=== PATIENT | male | born 1990 | race American Indian/Alaskan Native ===

== ENCOUNTER 2020-04-04 23:07 | Emergency (ER) | payer OTHER ==
[2020-04-05 00:12] VITALS: BP 125/59
--- NOTE | 2020-04-05 00:54 | XRay Report ---
. XR ribs UNILAT 2V RT INDICATION: right rib pain. COMPARISON: No relevant prior imaging study available. FINDINGS: No acute skeletal abnormality. Lungs are clear. No pleural effusion. No pneumothorax. There is mild scoliosis. IMPRESSION: 1. No acute findings. Signer Name: Amado Conner MD Signed: 04/05/2020 12:49 AM Workstation Name: [id number]
--- NOTE | 2020-04-05 00:55 | XRay Report ---
RIGHT HAND 3 VIEWS INDICATION: right hand pain. COMPARISON: No relevant prior imaging study available. FINDINGS: No acute skeletal abnormality. No soft tissue swelling or foreign bodies. No significant degenerative changes. IMPRESSION: 1. No acute findings. RIGHT FOREARM 2 VIEWS INDICATION: right hand pain. COMPARISON: No relevant prior imaging study available. FINDINGS: No acute skeletal abnormality. No focal soft tissue swelling. IMPRESSION: 1. No acute findings. Signer Name: Amado Conner MD Signed: 04/05/2020 12:51 AM Workstation Name: [id number]
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
== END 2020-04-05 02:45 | disposition home or self-care (01) ==
LOC: ED 23:07
DX: R07.89 Other chest pain (principal); M79.631 Pain in right forearm; M25.541 Pain in joints of right hand; V49.49XA Driver injured in collision with other motor vehicles in traffic accident, initial encounter; Y93.89 Activity, other specified; Y92.410 Unspecified street and highway as the place of occurrence of the external cause; Y99.8 Other external cause status